=== PATIENT | female | born 1995 | race Asian ===

== ENCOUNTER 2017-06-24 23:47 | Emergency (ER) | payer OTHER ==
[2017-06-25] MEDS ORDERED: PHENAZOPYRIDINE 200 MG TAB TH 2 TAB/BOTTLE PO ONE (00:20)
[2017-06-25] MEDS ORDERED: CEPHALEXIN MONO 500 MG CAP PO ONE (00:20)
[2017-06-25] MEDS ORDERED: PHENAZOPYRIDINE 200 MG TAB PO ONE (00:20)
--- NOTE | 2017-06-25 00:22 | ER Report ---
History and Physical Time Seen By MD: 23:56 Hx. of Stated Complaint: Pt reporting bladder spasms and trouble urinating at 1800 tonight. Pt states pain comes and goes. HPI/ROS CHIEF COMPLAINT: Fever, urinary discomfort HISTORY OF PRESENT ILLNESS: 21-year-old female presents ambulatory to the ER complaining of urinary discomfort 6 6 PM. Patient notes fevers this evening. She notes feeling weak. She denies nausea, vomiting, headache or stiff neck. She denies back pain. She states her last menstrual period was 3 weeks ago. REVIEW OF SYSTEMS: Respiratory: No cough, no dyspnea. Cardiovascular: No chest pain, no palpitations. Gastrointestinal: No vomiting, no abdominal pain. Musculoskeletal: No back pain. Allergies: Coded Allergies: crab (Verified Allergy, Unknown, 06/24/17) shrimp (Verified Allergy, Unknown, 06/24/17) Home Meds Active Scripts Cephalexin Monohydrate (CEPHALEXIN) 500 Mg Cap, 500 MG PO TID for infection, # 20 CAP TAKE 1 CAPSULE BY MOUTH EVERY SIX HOURS Prov:JESSE HELLER DO 06/25/17 Reviewed Nurses Notes: Yes Old Medical Records Reviewed: Yes Constitutional Vital Sign - Last 24 Hours 06/24/17 06/24/17 06/24/17 06/25/17 23:55 23:56 23:57 00:01 Temp 99.1 Pulse 128 Resp 20 B/P (MAP) 141/78 (99) 141/78 141/89 (106) Pulse Ox 98 99 O2 Delivery Room Air 06/25/17 06/25/17 06/25/17 06/25/17 00:06 00:11 00:16 00:16 Temp 100.2 Pulse 130 129 130 Resp 20 21 Pulse Ox 98 98 97 06/25/17 06/25/17 06/25/17 00:21 00:30 00:31 Pulse 134 130 Resp 19 24 B/P (MAP) 128/69 (88) Pulse Ox 95 Physical Exam General Appearance: The patient is alert, has no immediate need for airway protection and no current signs of toxicity. Temp 100.2 Eyes: Pupils equal and round no injection. Respiratory: Chest is non tender, lungs are clear to auscultation. Cardiac: regular rate and rhythm Gastrointestinal: Abdomen is soft and non tender, no masses, bowel sounds normal. No CVA tenderness Musculoskeletal: Neck: Neck is supple and non tender. No lymphadenopathy Extremities have full range of motion and are non tender. Skin: No rashes or lesions. DIFFERENTIAL DIAGNOSIS: After history and physical exam differential diagnosis was considered for abdominal pain in a female including but not limited to ovarian cyst, pelvic inflammatory disease, ovarian torsion, urinary tract infection, and appendicitis. Medical Decision Making Data Points Laboratory Hematology Test 06/25/17 00:00 Urine Color Red Urine Clarity Clear Urine pH 6.0 pH (4.8-9.5) Urine Specific [place] 1.002 Urine Protein 100 mg/dL (NEGATIVE) Urine Glucose (UA) Negative mg/dL (NEGATIVE) Urine Ketones Negative mg/dL (NEGATIVE) Urine Blood Large (NEGATIVE) Urine Nitrite Negative (NEGATIVE) Urine Bilirubin Negative (NEGATIVE) Urine Urobilinogen Negative mg/dL (0.2-1.9) Urine Leukocyte Esterase Small (NEGATIVE) Urine RBC 2 /HPF (0-2/HPF) Urine WBC 33 /HPF (0-5/HPF) Urine Squamous Epithelial Cells Few /LPF (</=FEW) Urine Bacteria Few /HPF (NONE-FEW) Urine Mucus None /HPF (NONE-FEW) Urine HCG, Qualitative Negative (NEGATIVE) Chemistry Test 06/25/17 00:00 Urine Color Red Urine Clarity Clear Urine pH 6.0 pH (4.8-9.5) Urine Specific [place] 1.002 Urine Protein 100 mg/dL (NEGATIVE) Urine Glucose (UA) Negative mg/dL (NEGATIVE) Urine Ketones Negative mg/dL (NEGATIVE) Urine Blood Large (NEGATIVE) Urine Nitrite Negative (NEGATIVE) Urine Bilirubin Negative (NEGATIVE) Urine Urobilinogen Negative mg/dL (0.2-1.9) Urine Leukocyte Esterase Small (NEGATIVE) Urine RBC 2 /HPF (0-2/HPF) Urine WBC 33 /HPF (0-5/HPF) Urine Squamous Epithelial Cells Few /LPF (</=FEW) Urine Bacteria Few /HPF (NONE-FEW) Urine Mucus None /HPF (NONE-FEW) Urine HCG, Qualitative Negative (NEGATIVE) Urinalysis Test 06/25/17 00:00 Urine Color Red Urine Clarity Clear Urine pH 6.0 pH (4.8-9.5) Urine Specific [place] 1.002 Urine Protein 100 mg/dL (NEGATIVE) Urine Glucose (UA) Negative mg/dL (NEGATIVE) Urine Ketones Negative mg/dL (NEGATIVE) Urine Blood Large (NEGATIVE) Urine Nitrite Negative (NEGATIVE) Urine Bilirubin Negative (NEGATIVE) Urine Urobilinogen Negative mg/dL (0.2-1.9) Urine Leukocyte Esterase Small (NEGATIVE) Urine RBC 2 /HPF (0-2/HPF) Urine WBC 33 /HPF (0-5/HPF) Urine Squamous Epithelial Cells Few /LPF (</=FEW) Urine Bacteria Few /HPF (NONE-FEW) Urine Mucus None /HPF (NONE-FEW) Urine HCG, Qualitative Negative (NEGATIVE) ED Course/Re-evaluation ED Course Patient admitted to an examination room. H&P was done. The differential diagnoses was considered. On clinical examination. Patient has a benign nonsurgical abdomen. Her urinalysis shows infection. A urinary culture was ordered. Patient be treated with Keflex 500 mg 3 times a day. 1st doses and macadam raker here in the ER. Patient was also given Pyridium. She is advised to take ibuprofen to control the fevers. Decision to Disposition Date: Jun 25, 2017 Decision to Disposition Time: 00:19 Depart Departure Latest Vital Signs Vital Signs Date Time Temp Pulse Resp B/P (MAP) Pulse Ox O2 Delivery O2 Flow Rate FiO2 06/25/17 00:31 130 24 06/25/17 00:30 128/69 (88) 06/25/17 00:21 95 06/25/17 00:16 100.2 06/24/17 23:56 Room Air Impression: Primary Impression: Urinary tract infection Condition: Improved Disposition: HOME OR SELF-CARE Referrals: JAZZMINE MOORE MD [facility] New Scripts Cephalexin Monohydrate (CEPHALEXIN) 500 Mg Cap 500 MG PO TID for infection, #20 CAP TAKE 1 CAPSULE BY MOUTH EVERY SIX HOURS Prov: JESSE HELLER DO 06/25/17 Departure Forms: Medications Reconciliation, Patient Portal Information, ER Transition Record Patient Instructions: Urinary Tract Infection in Women (ED) Additional Instructions: Drink plenty of fluids You can continue to take Uristat or Azo-Standard to urinary discomfort Take ibuprofen 200 mg 2-3 tablets 3 times a day to control fevers Follow-up with your primary care or student health if unimproved in 3-5 days Problem Qualifiers Primary Impression: Urinary tract infection Urinary tract infection type: acute cystitis Hematuria presence: with hematuria Qualified Codes: N30.01 - Acute cystitis with hematuria JESSE HELLER DO Jun 25, 2017 00:22
[2017-06-25] MEDS ORDERED: CEPH500C24 PO (00:27)
[2017-06-25 00:30] VITALS: BP 128/69
== END 2017-06-25 00:52 | disposition home or self-care (01) ==
LOC: ER 23:49
DX: N30.01 Acute cystitis with hematuria (principal)
CPT/HCPCS: 81001; 81025; 87088; 99284